=== PATIENT | female | born 1990 | race Hispanic/Latino ===

== ENCOUNTER 2023-06-15 22:46 | Emergency (ER) | payer MEDICAID, OTHER ==
[~2023-06-15] VITALS: Ht 160 cm; Wt 52.2 kg
[2023-06-15 23:37] LABS: APPEARANCE,URINE CLEAR (CLEAR); BILIRUBIN,URINE NEGATIVE (NEGATIVE); COLOR,URINE LIGHT-YELLOW (YELLOW); GLUCOSE, URINE (UA) NEGATIVE (NEGATIVE); KETONES,URINE NEGATIVE (NEGATIVE); LEUKOCYTE ESTERASE ,URINE NEGATIVE Leu/uL (NEGATIVE); NITRATE,URINE NEGATIVE (NEGATIVE); OCCULT BLOOD,URINE NEGATIVE (NEGATIVE); PH,URINE 5.5 (5.0-8.0); PROTEIN,URINE NEGATIVE (NEGATIVE); UROBILINOGEN,URINE 0.2 mg/dL (0.2-1.0)
[2023-06-15 23:38] LABS: ADD UA MICROSCOPIC NO
[2023-06-15 23:40] LABS: HCG,QUALITATIVE URINE POSITIVE (NEGATIVE)
[2023-06-16 00:01] VITALS: BP 91/49; PULSE 60; RESP 18; O2SAT 100
[2023-06-16] MEDS: 0.9%NACL 1000ML 1,000 ML IV ONE (00:08)
[2023-06-16] MEDS: ACETAMINOPHEN 325 MG TAB PO ONE (00:11)
== END 2023-06-16 01:23 | disposition home or self-care (01) ==
LOC: EDH 22:46
DX: O34.81 Maternal care for other abnormalities of pelvic organs, first trimester (principal); N83.202 Unspecified ovarian cyst, left side; O20.9 Hemorrhage in early pregnancy, unspecified; O26.891 Other specified pregnancy related conditions, first trimester; R10.2 Pelvic and perineal pain; D64.9 Anemia, unspecified; E03.9 Hypothyroidism, unspecified; Z3A.11 11 weeks gestation of pregnancy
CPT/HCPCS: 99284; 76801; 81003; 81025; 96360; J7030

== ENCOUNTER 2024-11-01 16:44 | Emergency (ER) | payer MEDICAID ==
[~2024-11-01] VITALS: Ht 160 cm; Wt 60.3 kg
[2024-11-01 16:46] VITALS: TEMP 98.3
--- NOTE | 2024-11-01 17:16 | ERN ---
ED Note History of Present Illness Stated Complaint: PELVIC PAIN Chief Complaint: Pelvic Pain Time Seen by MD: 16:51 Time Seen by Midlevel: 16:51 Dictation: The patient is a 34-year-old female with a history of , ovarian cyst who presents to the emergency department with complaints of pelvic pain onset a week ago associated nausea. Patient reports that she was recently diagnosed with bilateral ovarian cyst. Denies any diarrhea or constipation. Denies any fevers. Allergies: Coded Allergies: No Known Allergies (Unverified Allergy, Unknown, 06/15/23) Home Meds Active Scripts Ibuprofen (Ibuprofen) 600 Mg Tablet, 600 MG PO Q6H PRN for PAIN, #15 TAB Prov:MARIANELA KELLY FACILITY MANAGER 11/01/24 Past Medical History Past Medical History: Anemia, Hyperthyroid Additional Past Medical Hx: OVARIAN CYSTS Surgical History: Family History: Negative Social History: Negative, Lives with family History: Not Applicable : 3 Para: 2 Aborts: 0 RN Note Reviewed/Agreed w/PFSH: Yes Review of System Dictation Constitutional: Negative for fever,chills, and weight loss Eyes: Negative for injury, pain,redness, and discharge ENT: Negative for injury,pain or swelling Cardiovascular: Negative for chest pain, palpitations, and edema Respiratory: Negative for shortness of breath, cough, and wheezing, Abdomen/GI: Negative for vomiting, diarrhea, and constipation positive for abdominal pain, nausea Back: Negative for injury and pain : Negative for injury, bleeding and discharge MS/Extremity: Negative for injury and deformity Skin: Negative for rash, and discoloration Neuro: Negative for headache, weakness, numbness, tingling, and seizure Psych: Negative for suicide ideation, homicidal ideation, and hallucinations Initial Vital Sign VS Vital Signs Date Time Temp Pulse Resp B/P (MAP) Pulse Ox O2 Delivery O2 Flow Rate FiO2 11/01/24 16:46 98.2 92 16 106/70 96 Room Air 11/01/24 17:36 0 21 Physical Exam Dictation Vital Signs reviewed General Appearance: Alert, oriented x 3, no acute distress, well developed, nourished. Head and Face: non-traumatic. Eyes: PERRL, pink conjunctivas, eyelid no trauma, anterior chamber with arcus senilis. Ears: Pinnas intact and no signs of trauma or erythema ear canals clear and no discharge TM no erythema Nose: No discharge, no bleeding. Oropharynx: Mouth normal, tongue pink. pharynx clear,no erythema, tonsils no exudates, no abscesses noted, mucous membrane moist Neck: Supple, non-tender, no thyromegaly, no masses, no JVD, no bruits Breast:Deferred Chest:No tenderness, no crepitus, no paradoxical movement, no retractions Lungs:Clear, well-ventilated, symmetric, no rales, no wheezing, no rhonchi, no stridor, good breath sounds bilaterally Heart: Regular rate, regular rhythm, no murmur, no gallops Vascular: no peripheral edema, Abdomen: Soft, positive bowel sounds, nondistended, no guarding, Left lower quadrant tenderness,, no rebound, no masses no hepatomegaly, no splenomegaly, no Espinoza's sign, no hernias. Rectal: Deferred Genital: Deferred Neurological: Normal speech, motor function intact, sensory function intact Musculoskeletal: Neck nontender, full range of motion, back nontender, full range of motion, Extremities: nontender, full range of motion Skin: Color pink, dry, no turgor, no rash, no lacerations, no abrasions, no contusions. Lymphatic: Deferred Results (Laboratory/Radiology) Laboratory/Radiology Laboratory Tests Test 11/01/24 17:10 White Blood Count 6.9 K/uL (4.8-10.8) Red Blood Count 4.24 MIL/uL (4.00-5.50) Hemoglobin 7.8 g/dL (12.0-16.0) L Hematocrit 28.1 % (36-48) L Mean Corpuscular Volume 66.3 fL (79-99) L Mean Corpuscular Hemoglobin 18.4 pg (27.0-33.0) L Mean Corpuscular Hemoglobin Concent 27.8 g/dL (32.0-36.0) L Red Cell Distribution Width 18.9 % (11.0-15.5) H Platelet Count 489 K/uL (130-400) H Mean Platelet Volume 9.4 fL (7.5-10.5) Immature Granulocyte % (Auto) 0.1 % (0-1) Neutrophils (%) (Auto) 61.4 % (40.0-77.0) Lymphocytes (%) (Auto) 31.5 % (21.0-51.0) Monocytes (%) (Auto) 5.7 % (3.0-13.0) Eosinophils (%) (Auto) 0.7 % (0.0-8.0) Basophils (%) (Auto) 0.6 % (0.0-5.0) Neutrophils # (Auto) 4.2 K/uL (1.8-7.7) Lymphocytes # (Auto) 2.2 K/uL (1.0-4.8) Monocytes # (Auto) 0.4 K/uL (0.1-1.0) Eosinophils # (Auto) 0.05 K/uL (0.00-0.70) Basophils # (Auto) 0.04 K/uL (0.00-0.20) Absolute Immature Granulocyte (auto 0.01 K/uL (0-1) Nucleated Red Blood Cells 0.0 % (0.0-0.19) Red Blood Cell Morphology See comments Urine Color LIGHT-YELLOW (YELLOW) Urine Appearance CLEAR (CLEAR) Urine pH 8.0 (5.0-8.0) Urine Specific Esmond 1.019 (1.001-1.031) Urine Protein NEGATIVE mg/dL (NEGATIVE) Urine Glucose (UA) NEGATIVE mg/dL (NEGATIVE) Urine Ketones NEGATIVE mg/dL (NEGATIVE) Urine Occult Blood NEGATIVE (NEGATIVE) Urine Nitrate NEGATIVE (NEGATIVE) Urine Bilirubin NEGATIVE mg/dL (NEGATIVE) Urine Urobilinogen 4.0 mg/dL (0.2-1.0) H Urine Leukocyte Esterase NEGATIVE Ashley/uL Urine RBC 0-1 /HPF (0-1) Urine WBC 2-5 /HPF (0-1) H Urine Squamous Epithelial Cells FEW /HPF (0-2) Urine Bacteria None /HPF (None Seen) Sodium Level 135 mmol/L (136-145) L Potassium Level 3.5 mmol/L (3.5-5.1) Chloride Level 101 mmol/L (101-111) Carbon Dioxide Level 27 mmol/L (21-32) Blood Urea Nitrogen 9 mg/dL (7-18) Creatinine 0.6 mg/dL (0.5-1.0) Glomerular Filtration Rate Calc 122 mL/min (>90) Random Glucose 100 mg/dL (70-105) Total Calcium 8.9 mg/dL (8.5-10.1) Serum Test, Qualitative NEGATIVE (NEGATIVE) REASON: VAGINAL BLEEDING ORDERING PHYSICIAN: ENOC LUCIA DO PROCEDURE: TRNVG NON - US TRANSVAGINAL NON-OB EXAMINATION Ultrasound Pelvis, non-obstetric transvaginal. CLINICAL HISTORY Vaginal bleed TECHNIQUE Transvaginal grayscale and color Doppler images of the pelvis were obtained. COMPARISON None provided. FINDINGS UTERUS The uterus measures 9 x 4 cm and shows no fibroids. ENDOMETRIUM The endometrium measures 19 mm in thickness and demonstrates a heterogeneous texture. RIGHT OVARY The right ovary measures 2.6 x 1.9 x 2.6 cm, with an ellipsoid volume of approximately 6.7 cc. A cyst/follicle measures 14 x 9 x 13 mm, with an ellipsoid volume of approximately 0.9 cc. LEFT OVARY The left ovary measures 2.5 x 2 x 2 cm, with an ellipsoid volume of approximately 5.2 cc. A hemorrhagic cyst or corpus luteum measures 9 x 9 x 9 mm, with an ellipsoid volume of approximately 0.4 cc. POUCH OF ZOIE Minimal free fluid is present. IMPRESSION Thickened heterogeneous endometrium. Recommend gynecologic consultation, and if warranted contrast-enhanced MR imaging of the pelvis for further evaluation. No uterine fibroid, no significant adnexal mass lesions. /[facility] Labs Reviewed?: Yes ED Course ED Course Orders Procedure Category Date Status Time Cbc With Differential LAB 11/01/24 Complete 16:51 Testing, LAB 11/01/24 Complete Serum Hcg 16:51 Lactated Ringers PHA 11/01/24 Complete 1000ml (Lactated 16:51 Basic Metabolic Panel LAB 11/01/24 Complete 16:51 Urinalysis LAB 11/01/24 Complete W/Microscopic 16:51 Morphine 4mg Syg PHA 11/01/24 Complete (Morphine 4mg Syg) 17:30 Ondansetron 4mg Inj PHA 11/01/24 Complete (Zofran 4mg Inj) 17:30 Us Transvaginal Non-Ob US 11/01/24 Resulted 16:51 Current Medications Medications (Trade) Dose Ordered Sig/Julien Route PRN Reason Start Time Stop Time Status Last Admin Dose Admin Lactated Ringer's 1,000 ml @ 0 mls/hr Q0M STAT IV 11/01/24 16:51 11/01/24 16:59 DC 11/01/24 17:58 Morphine Sulfate (morPHINE 4MG SYG) 4 mg ONCE ONCE IVP 11/01/24 17:30 11/01/24 17:31 DC 11/01/24 17:59 Ondansetron HCl (zoFRAN 4MG INJ) 4 mg ONCE ONCE IVP 11/01/24 17:30 11/01/24 17:31 DC 11/01/24 17:58 Vital Signs Date Time Temp Pulse Resp B/P (MAP) Pulse Ox O2 Delivery O2 Flow Rate FiO2 11/01/24 17:36 78 20 124/87 99 Room Air* 0 21 11/01/24 16:46 98.2 92 16 106/70 96 Room Air Medical Decision Making MDM The patient is a 34-year-old female with a history of , ovarian cyst who presents to the emergency department with complaints of pelvic pain onset a week ago associated nausea. Patient reports that she was recently diagnosed with bilateral ovarian cyst. Denies any diarrhea or constipation. Denies any fevers. Denies Any vaginal bleeding CBC showed no leukocytosis, microcytic anemia, chemistry showed mild hyponatremia, normal renal function, urinalysis showed no leukocyte esterase or nitrites. Ultrasound revealed no ovarian cyst, with a hemorrhagic cyst to left ovary. Patient at this time is requesting to be discharged. Patient instructed to follow up with the OBGYN. On physical exam patient is in no acute distress, nontoxic appearance. Differential diagnosis: UTI, ovarian cyst, , ovarian torsion Need for hospitalization: Patient does not meet criteria for hospitalization. There are no social concerns with this patient. DX & DISP Disposition: Discharge Departure Impression: Primary Impression: Left ovarian cyst Additional Impression: Hemorrhagic cyst of left ovary Condition: Stable Scripts Ibuprofen (Ibuprofen) 600 Mg Tablet 600 MG PO Q6H PRN for PAIN, #15 TAB Prov: MARIANELA KELLY FACILITY MANAGER 11/01/24 Additional Instructions: Please follow up with OBGYN. Take mediations as prescribed. If anything worsens please return to ER. FOLLOW-UP WITH PRIMARY CARE PROVIDER IN 1 TO 2 DAYS. TAKE MEDICATIONS DIRECT ED HERE IN THE EMERGENCY ROOM. OKAY TO CONTINUE HOME MEDICATIONS UNLESS OTHERWISE DISCUSSED DURING YOUR VISIT IN THE EMERGENCY ROOM TODAY. RETURN TO YOUR NEAREST EMERGENCY ROOM IF SYMPTOMS WORSEN OR IF THERE IS NO IMPROVEMENT. CALL 911 IF YOU NEED IMMEDIATE ASSISTANCE. TAKE TYLENOL [id number] NEEDED AND IF NO CONTRAINDICATIONS ARE PRESENT. INCREASE ORAL HYDRATION. A WOUND CULTURE OR URINE CULTURE WAS ORDERED HERE IN THE EMERGENCY ROOM DEPARTMENT PLEASE FOLLOW-UP WITH PRIMARY CARE PROVIDER AND ADVISE THEM TO GET REPEAT PORTS FROM OUR FACILITY. IF YOU HAD ANY RADHA WRAP/SPLINTS THAT WERE APPLIED HERE, PLEASE DO NOT REMOVE THEM UNTIL YOU SEE YOUR PRIMARY CARE OR SPECIALTY. Referrals: RUDI LAMA MD (PCP) Time of Disposition: 18:16 I have reviewed the case, and I agree with, Diagnosis and Plan MARIANELA KELLY [facility] Nov 01, 2024 17:16 ENOC LUCIA DO Nov 02, 2024 06:58
[2024-11-01 17:17] LABS: IMMATURE GRANULOCYTE ABSOLUTE 0.01 K/uL (0-1); NUCLEATED RED BLOOD CELLS 0.0 % (0.0-0.19); PLATELET COUNT (AUTO) 489 K/uL (130-400); RED BLOOD CELL COUNT(AUTO) 4.24 MIL/uL (4.00-5.50); RED CELL DISTRIBUTION WIDTH 18.9 % (11.0-15.5); WHITE BLOOD COUNT (AUTO) 6.9 K/uL (4.8-10.8)
[2024-11-01 17:24] LABS: APPEARANCE,URINE CLEAR (CLEAR); GLUCOSE, URINE (UA) NEGATIVE (NEGATIVE); LEUKOCYTE ESTERASE ,URINE NEGATIVE Leu/uL (NEGATIVE); NITRATE,URINE NEGATIVE (NEGATIVE); OCCULT BLOOD,URINE NEGATIVE (NEGATIVE)
[2024-11-01 17:28] LABS: SQUAMOUS EPITHELIAL CELL,UR FEW /HPF (0-2)
[2024-11-01 17:34] LABS: CREATININE 0.6 mg/dL (0.5-1.0); GLOMERULAR FILTR. RATE CALC 122.0 mL/min (>90); GLUCOSE,RANDOM 100.0 mg/dL (70-105); SODIUM SERUM 135.0 mmol/L (136-145); UREA NITROGEN, BLOOD 9.0 mg/dL (7-18)
[2024-11-01 17:36] VITALS: BP 124/87; PULSE 78; RESP 20; O2SAT 99
[2024-11-01] MEDS: LACTATED RINGERS 1000ML 1,000 ML IV STA (17:58)
[2024-11-01] MEDS ORDERED: IBUP-1492 PO (18:17)
--- NOTE | 2024-11-01 19:21 | HMCIMG ---
EXAMINATION Ultrasound Pelvis, non-obstetric transvaginal. CLINICAL HISTORY Vaginal bleed TECHNIQUE Transvaginal grayscale and color Doppler images of the pelvis were obtained. COMPARISON None provided. FINDINGS UTERUS The uterus measures 9 x 4 cm and shows no fibroids. ENDOMETRIUM The endometrium measures 19 mm in thickness and demonstrates a heterogeneous texture. RIGHT OVARY The right ovary measures 2.6 x 1.9 x 2.6 cm, with an ellipsoid volume of approximately 6.7 cc. A cyst/follicle measures 14 x 9 x 13 mm, with an ellipsoid volume of approximately 0.9 cc. LEFT OVARY The left ovary measures 2.5 x 2 x 2 cm, with an ellipsoid volume of approximately 5.2 cc. A hemorrhagic cyst or corpus luteum measures 9 x 9 x 9 mm, with an ellipsoid volume of approximately 0.4 cc. POUCH OF ZOIE Minimal free fluid is present. IMPRESSION Thickened heterogeneous endometrium. Recommend gynecologic consultation, and if warranted contrast-enhanced MR imaging of the pelvis for further evaluation. No uterine fibroid, no significant adnexal mass lesions. /[place]
== END 2024-11-01 18:21 | disposition home or self-care (01) ==
LOC: EDH 16:44
DX: N83.202 Unspecified ovarian cyst, left side (principal); E05.90 Thyrotoxicosis, unspecified without thyrotoxic crisis or storm; Z98.890 Other specified postprocedural states; Z87.42 Personal history of other diseases of the female genital tract
CPT/HCPCS: 99285; 96374; 76830; 96375; 80048; 84703; 85025; 81001; 36415; J7120; J2405; J2270